=== PATIENT | female | born 1990 | race Caucasian/White ===

== ENCOUNTER 2020-05-18 13:32 | Emergency (ER) | payer BC, OTHER ==
[~2020-05-18] VITALS: Ht 170.2 cm; Wt 93.5 kg
[2020-05-18 14:39] LABS: ALBUMIN 3.8 g/dL (3.4-5.0); ANION GAP 7 mmol/L (5-15); CALCIUM 9.1 mg/dL (8.5-10.1); CHLORIDE 110 mmol/L (98-107); CREATININE 0.71 mg/dL (0.55-1.02)
[2020-05-18 14:42] LABS: BASOPHILS % (AUTO) 1 % (0-1); EOSINOPHILS % (AUTO) 1 % (1-7); LYMPHOCYTES % (AUTO) 20 % (22-44); MEAN CORPUSCULAR HEMOGLOBIN 33.3 pg (27.0-34.8); MEAN CORPUSCULAR HGB CONC 34.4 g/dL (32.4-35.8); MEAN PLATELET VOLUME 8.4 fL (7.4-10.4); MONOCYTES % (AUTO) 7 % (2-9); NEUTROPHILS % (AUTO) 72 % (42-75); PLATELET COUNT 370 x10^3/uL (130-400); RED BLOOD COUNT 4.38 x10^6/uL (3.82-5.3); RED CELL DISTRIBUTION WIDTH 12.6 % (9.6-15.2)
[2020-05-18 14:44] VITALS: BP 113/48
[2020-05-18 14:48] LABS: MD NO
== END 2020-05-18 15:32 | disposition home or self-care (01) ==
LOC: ED 15:03
DX: B34.9 Viral infection, unspecified (principal); Z20.828 Contact with and (suspected) exposure to other viral communicable diseases; R50.9 Fever, unspecified; R11.2 Nausea with vomiting, unspecified; M79.10 Myalgia, unspecified site; R06.02 Shortness of breath
CPT/HCPCS: 36415; 71045; 80048; 82040; 85025; 87635; 99284